=== PATIENT | female | born 1985 | race American Indian/Alaskan Native ===

== ENCOUNTER 2017-03-14 22:55 | Inpatient (IN) | payer BC, MEDICAID ==
[2017-03-14 23:19] VITALS: BMI 28.8
--- NOTE | 2017-03-14 23:30 | OBHP ---
Datetime: 03/14/2017 23:27 IP Adm Impression: Term, intrauterine ; Ruptured Membranes IP Admit Plan: Admit to unit; Initiate labor protocol Admit Comment, IP Provider: at 37.4weks came with c/o rom at 10.30 pm and occ pain, no vb, =fm. obhx 4 x pmh den med pnv a;ll nkda psh den soch de sse +poolinh,+nitrazine a/p at 37weks prom admit yto l_d npo/ivf labs cont la and efm gbs prophylaxsis pain management anticipate Pelvic Type - PN: Adequate Extremities - PN: Normal Abdomen - PN: Normal Back - PN: Normal Breast - PN: Normal Lungs - PN: Normal Heart - PN: Normal Thyroid - PN: Normal Neurologic - PN: Normal HEENT - PN: Normal General - PN: Normal FHR - Baseline A Provider: 130 Membranes, Provider: Ruptured Contraction Comments Provider: irrg IP Hx Assessment: The History has been Reviewed and is Current EGA AdmitDate IP: 37.4 Vital Signs Provider: Reviewed; Within Normal Limits IP Chief Complaint: Suspected ruptured membranes NICHD Variability Prov Fetus A: Moderate 6-25bpm NICHD Accel Fetus A IP Provider: 15X15 FHR Category Provider Fetus A: Category I Dilatation, Provider: 2 Effacement, Provider: 70 Station, Provider: -2 Genitourinary Exam: Normal DTRs - PN: Normal
[2017-03-14] MEDS ORDERED: Penicillin G 5 Million Unit Vial IVPB ONE (23:31)
[2017-03-14] MEDS ORDERED: Penicillin G Potassium 2.5 MU in Dextrose 5% In Water 50 ML IV SCH (23:45)
[2017-03-14] MEDS ORDERED: Lactated Ringer's 1,000 ML IV SCH (23:45)
[2017-03-14] MEDS ORDERED: Nalbuphine 20 mg/ml Inj (1 ml) IVP PRN (23:45)
[2017-03-15] MEDS ORDERED: Penicillin G 5 Million Unit Vial IVPB ONE (00:06)
[2017-03-15] MEDS ORDERED: Oxytocin 30 UNIT 30 UNITS/500 ML BAG IV SCH (00:15)
[2017-03-15 00:34] LABS: RBC URINE 2 /hpf (0-3); URINE BACTERIA RARE (<OCC); URINE BILIRUBIN NEGATIVE (NEGATIVE); URINE BLOOD NEGATIVE (NEGATIVE); URINE COLOR Yellow (YELLOW); URINE GLUCOSE (UA) NORMAL (Normal); URINE KETONE NEGATIVE (NEGATIVE); URINE LEUKOCYTE ESTERASE TRACE Leu/uL (Negative); URINE PROTEIN 1+ mg/dL (NEGATIVE); URINE UROBILINOGEN NORMAL mg/dL (0.2-1.0); WBC URINE 3 /hpf (0-5)
[2017-03-15 00:37] LABS: BASO % 0.3 % (0.0-2.0); EOS # 0.1 K/uL (0.0-0.7); EOS % 0.6 % (0.0-4.0); HEMATOCRIT 33.9 % (34.0-47.0); LYMPH # 1.9 K/uL (1.0-4.3); LYMPH % 20.1 % (20.0-40.0); MEAN CELL VOLUME 83.3 fL (81.0-99.0); MEAN CORPUSCULAR HEMOGLOBIN 28.1 pg (27.0-31.0); MEAN CORPUSCULAR HGB CONC 33.7 g/dL (33.0-37.0); MEAN PLATELET VOLUME 10.9 fL (7.2-11.7); MONO # 0.9 K/uL (0.0-0.8); MONO % 9.3 % (0.0-10.0); RED CELL DISTRIBUTION WIDTH 13.5 % (11.5-14.5); WHITE BLOOD COUNT 9.3 K/uL (4.8-10.8)
[2017-03-15 00:38] LABS: CHLORIDE 102 mmol/L (98-107); SODIUM 133 mmol/L (132-148)
[2017-03-15 00:39] LABS: POTASSIUM 3.5 mmol/L (3.6-5.2)
[2017-03-15 00:41] LABS: ALKALINE PHOSPHATASE 107 U/L (38-126); AST/SGOT 26 U/L (14-36); BLOOD UREA NITROGEN 9 mg/dL (7-17); CARBON DIOXIDE 23 mmol/L (22-30); GFR AFRICAN-AMERICAN > 60; GLUCOSE,RANDOM 91 mg/dL (65-105); TOTAL PROTEIN 6.5 g/dL (6.3-8.3)
[2017-03-15 00:42] LABS: ALT/SGPT 18 U/L (9-52); CALCIUM 8.8 mg/dl (8.6-10.4)
--- NOTE | 2017-03-15 01:52 | OBADHP ---
Datetime: 03/15/2017 01:41 Admit Comment, IP Provider: PROM at Term. Reassuring Status. GBS positive. Inducelabor with Pi tocin.. Anticipate . Pelvic Type - PN: Adequate Extremities - PN: Normal Abdomen - PN: Normal Back - PN: Normal Breast - PN: Not Done Lungs - PN: Normal Heart - PN: Normal Thyroid - PN: Not Done HEENT - PN: Not Done General - PN: Normal Weight - Estimated: 3500 Presentation-Admit: Vertex FHR - Baseline A Provider: 135 Membranes, Provider: Ruptured Contraction Comments Provider: Q2-4 min. Gestation - Est Wks by US: 38.0 Pool Provider: Positive IP Hx Assessment: The History has been Reviewed and is Current Vital Signs Provider: Reviewed; Within Normal Limits IP Chief Complaint: Uterine contractions; Suspected ruptured membranes NICHD Variability Prov Fetus A: Moderate 6-25bpm NICHD Accel Fetus A IP Provider: 15X15 FHR Category Provider Fetus A: Category I NICHD Decel Fetus A IP Provider: None Dilatation, Provider: 2 Effacement, Provider: 70 Station, Provider: -2 Genitourinary Exam: Normal DTRs - PN: Normal EGA AdmitDate IP: 37.5 IP Adm Impression: Term, intrauterine ; No Active Labor; Ruptured Membranes IP Admit Plan: Admit to unit; Initiate labor induction protocol
[2017-03-15] MEDS ORDERED: Nalbuphine 20 mg/ml Inj (1 ml) ONE (01:55)
--- NOTE | 2017-03-15 03:48 | OBDS ---
DELIVERY PERSONNEL Delivery Doctor: Franca Plaza MD Plate And Frame Filter Operator: Trinity, Juanita RN MATERNAL INFORMATION Delivery Anesthesia: None Medications in Delivery: pitocin 20 units Placenta Cultured: No Maternal Complications: None Provider Comments: TO A VIABLE GIRL, ROSE'S /9. LABOR SUMMARY EDC: 03/31/2017 00:00 No. Babies in Womb: 1 LABOR INFORMATION Group B Beta Strep: Positive MEMBRANES Membranes Rupture Method: Spontaneous Rupture of Membranes: 03/14/2017 22:30 Length of Rupture (hrs): 5.07 Amniotic Fluid Color: Clear Amniotic Fluid Amount: Moderate Amniotic Fluid Odor: Normal STAGES OF LABOR Stage 3 hrs: 0 Stage 3 min: 3 BABY A INFORMATION Delivery Date/Time: 03/15/2017 03:34 Method of Delivery: Vaginal Born in Route : No : N/A Forceps: N/A Vacuum Extraction: N/A Shoulder Dystocia : No SHOULDER DYSTOCIA BABY A Infant Delivery Date/Time: 03/15/2017 03:34 PRESENTATION/POSITION BABY A Presentation: Cephalic Cephalic Presentation: Vertex Vertex Position: Left Occipital Anterior Breech Presentation: N/A PLACENTA INFORMATION BABY A Placenta Delivery Time : 03/15/2017 03:37 Placenta Method of Delivery: Spontaneous Placenta Status: Delivered INFANT INFORMATION BABY A Gestational Age at Delivery: 37.5 Gestational Status: Term Outcome : Liveborn Condition : Stable Infant Sex: Female IDENTIFICATION/MEDS BABY A ID Band Number: [id number] Sensor Number: [id number] WEIGHT/LENGTH BABY A Infant Birthweight (gms): 2940 Infant Weight (lb): 6 Infant Weight (oz): 8 Infant Length Inches: 19.50 Infant Length cms: 49.5 CORD INFORMATION BABY A Nuchal Cord : N/A
[2017-03-15] MEDS ORDERED: Penicillin G Potassium 2.5 MU in Dextrose 5% In Water 50 ML IV SCH (04:00)
[2017-03-16 08:11] LABS: HEMATOCRIT 34.6 % (34.0-47.0)
--- NOTE | 2017-03-16 10:41 | OBPPN ---
Datetime: 03/16/2017 09:40 PP Pain Prov: Within normal limits PP Nausea Prov: Denies PP Flatus Prov: Yes PP BM Prov: Yes PP Breasts Prov: Normal PP Heart Prov: Normal PP Lungs Prov: Normal PP Abdomen/Uterus Prov: Normal PP Lochia Prov: Normal PP Vulva/Perineum Prov: Normal PP CVA Tenderness Prov: Normal PP Extremities Prov: Normal PP C/S Incision Prov: Not Applicable PP Progress Prov: Normal PP Impression Prov: Normal progression PP Plan Prov: Continue present management PP Progress Note Prov: Stable. Anticipate discharge tomorrow IP PP Procedures: None Vital Signs Provider PP: Reviewed; Within Normal Limits
[2017-03-17 09:21] VITALS: BP 112/74; PULSE 88; RESP 18; TEMP 97.4; O2SAT 99
--- NOTE | 2017-03-18 11:59 | OBDCSUM ---
Datetime: 03/17/2017 09:58 Discharge Instructions, Provider: Routine instructions given Discharge Diagnosis, Provider: Term Delivered Contraception discussed, Prov: Yes Discharge Comment, Provider: , UNCOMPLICATED Discharge Diagnosis Prov Other: Contraception after Delivery: IUD
== END 2017-03-17 11:00 | disposition home or self-care (01) | DRG 775 ==
LOC: C.EROB 22:55 → C.4D 23:31 → C.4M 03-15 05:18
PROVIDERS: ADMIT Obstetrics & Gynecology; ATTEND Obstetrics & Gynecology
PROC: 10E0XZZ Delivery of Products of Conception, External Approach (ICD-10-PCS; principal; 2017-03-15)
DX: O42.92 Full-term premature rupture of membranes, unspecified as to length of time between rupture and onset of labor (principal); O99.824 Streptococcus B carrier state complicating childbirth; Z37.0 Single live birth; Z3A.37 37 weeks gestation of pregnancy